=== PATIENT | female | born 1945 | race Caucasian/White ===

== ENCOUNTER 2019-07-13 08:23 | Emergency (ER) | payer MEDICARE ==
[~2019-07-13] VITALS: Ht 157.5 cm; Wt 84.2 kg
[2019-07-13] MEDS ORDERED: ketamine 10mg/ml 20ml inj IV ONE (09:05)
[2019-07-13] MEDS ORDERED: LIDOcaine 1% 30ml preserv. free vial IJ ONE (09:05)
[2019-07-13] MEDS ORDERED: ketamine 50 mg/ml 10ml vial IV ONE (09:10)
[2019-07-13] MEDS ORDERED: ondansetron/PF 4mg/2ml inj IV ONE (09:50)
--- NOTE | 2019-07-13 09:57 | NUR ---
XRAY AT BEDSIDE
[2019-07-13] MEDS ORDERED: HYDR-4383 PO (10:19)
[2019-07-13 11:55] VITALS: BP 170/91
== END 2019-07-13 11:57 | disposition home or self-care (01) ==
LOC: ER 08:24
DX: S52.591A Other fractures of lower end of right radius, initial encounter for closed fracture (principal); S00.81XA Abrasion of other part of head, initial encounter; Z79.899 Other long term (current) drug therapy; W10.8XXA Fall (on) (from) other stairs and steps, initial encounter; Y93.89 Activity, other specified; Y92.89 Other specified places as the place of occurrence of the external cause; Y99.8 Other external cause status
CPT/HCPCS: 25605; 73100; 73110; 96374; 99152; 99153; 99285; J2405